=== PATIENT | female | born 1965 | race Caucasian/White ===

== ENCOUNTER 2018-05-29 18:39 | Inpatient (IN) | payer OTHER ==
[2018-05-29] MEDS ORDERED: ONDANSETRON 4 MG INJ IV (20:30)
[2018-05-29] MEDS ORDERED: hydrALAzine 20 MG INJ IV (20:30)
[2018-05-29] MEDS ORDERED: ACETAMINOPHEN 325 MG TAB PO (20:30)
[2018-05-29] MEDS ORDERED: ALBUTEROL/IPRATROPIUM (NEB) 3 ML AMP HHN (20:30)
[2018-05-29] MEDS: NYSTATIN SUSP 5 ML CUP PO (21:29)
[2018-05-29] MEDS: DOCUSATE SODIUM 100 MG CAP PO (22:28)
[2018-05-29] MEDS: MONTELUKAST 10 MG TAB PO (22:28)
[2018-05-29] MEDS: HYDROCODONE/APAP (5/325) TAB PO (22:29)
[2018-05-29] MEDS: ALBUTEROL 0.083% (NEB) 2.5 MG/3 ML AMP NEB (22:39)
[2018-05-29] MEDS: BUDESONIDE (NEB) 0.5MG/2ML AMP NEB (22:41)
[2018-05-30] MEDS: ALBUTEROL 0.083% (NEB) 2.5 MG/3 ML AMP NEB ×2 (03:41→07:43)
[2018-05-30] MEDS: NYSTATIN SUSP 5 ML CUP PO ×4 (08:09→20:56)
[2018-05-30] MEDS: predniSONE 20 MG TAB PO (08:09)
[2018-05-30] MEDS: AZITHROMYCIN 250 MG TAB PO (08:09)
[2018-05-30] MEDS: DOCUSATE SODIUM 100 MG CAP PO ×2 (08:09→21:00)
[2018-05-30] MEDS: HYDROCODONE/APAP (5/325) TAB PO ×3 (08:09→20:55)
[2018-05-30] MEDS: ENOXAPARIN 40 MG/0.4 ML SYG SC (09:04)
[2018-05-30] MEDS: BUDESONIDE (NEB) 0.5MG/2ML AMP NEB ×2 (09:46→21:09)
[2018-05-30] MEDS ORDERED: KETOROLAC 15 MG INJ IV (11:00)
[2018-05-30] MEDS ORDERED: GLUCOSE GEL 15 GRAM TUBE BUCCAL (11:30)
[2018-05-30] MEDS ORDERED: GLUCAGON 1 MG INJ IM (11:30)
[2018-05-30] MEDS ORDERED: GLUCOSE GEL 15 GRAM TUBE PO ×2 (11:30)
[2018-05-30] MEDS ORDERED: DEXTROSE 50% 50 ML SYRINGE IV ×2 (11:30)
[2018-05-30 11:38] LABS: Allen Test ACCEPTAB; Arterial Base Excess 6.7 mmol/L (-3.0-3); Arterial Blood Gas Oxygen Sat 89.4 mmHG (95.0-98.0); Arterial COHb 0.7 % (0.0-3.0); Arterial Fraction of Oxyhgb 88.5 % (93.0-99.0); Arterial HCO3 34.3 mmol/L (22.0-26.0); Arterial MetHb 0.3 % (0.0-1.5); Arterial pCO2 58.9 mmhg (35-45); MODE NASAL CANNULA; Site Right Radial
[2018-05-30] MEDS: INSULIN ASPART [NOVOLOG] 3 ML PEN SC ×3 (12:15→21:00)
[2018-05-30] MEDS: IPRATROPIUM (NEB) 0.5 MG/2.5 ML AMP HHN ×3 (13:13→21:09)
[2018-05-30] MEDS: ALBUTEROL 0.083% (NEB) 2.5 MG/3 ML AMP HHN ×3 (13:13→21:09)
[2018-05-30 13:34] LABS: ANION GAP 5 (5-13); BLOOD UREA NITROGEN 26 mg/dl (7-20); CALCIUM 8.9 mg/dl (8.4-10.2); CARBON DIOXIDE 35 mmol/L (21-31); CHLORIDE 98 mmol/L (97-110); Estimated GFR > 60 mL/min (>60); GLUCOSE 225 mg/dl (70-220); POTASSIUM 4.3 mmol/L (3.5-5.1); SODIUM 138 mmol/L (135-144)
[2018-05-30] MEDS: GUAIFENESIN/DM 5ML CUP PO (13:53)
[2018-05-30] MEDS: MONTELUKAST 10 MG TAB PO (20:56)
[2018-05-31] MEDS: IPRATROPIUM (NEB) 0.5 MG/2.5 ML AMP HHN ×6 (00:51→20:22)
[2018-05-31] MEDS: ALBUTEROL 0.083% (NEB) 2.5 MG/3 ML AMP HHN ×6 (00:51→20:22)
[2018-05-31] MEDS: ACCU-CHEK XX (02:00)
[2018-05-31 06:49] LABS: ADD MAN DIFF? NO
[2018-05-31 06:52] LABS: BASOPHILS % 0.2 % (0.0-2.0); EOSINOPHILS % 0.3 % (0.0-7.0); HEMATOCRIT 46.6 % (37.0-47.0); LYMPHOCYTES # 1.7 10^3/ul (0.8-2.9); LYMPHOCYTES % 16.5 % (15.0-51.0); MEAN CORPUSCULAR HEMOGLOBIN 31.1 pg (29.0-33.0); MEAN CORPUSCULAR HGB CONC 32.2 g/dl (32.0-37.0); MEAN CORPUSCULAR VOLUME 96.7 fl (82.0-101.0); MEAN PLATELET VOLUME 10.1 fl (7.4-10.4); MONOCYTE # 0.4 10^3/ul (0.3-0.9); MONOCYTES % 3.8 % (0.0-11.0); NEUTROPHILS % 77.8 % (39.0-77.0); PLATELET COUNT 178 10^3/UL (140-415); RED BLOOD COUNT 4.82 10^6/ul (4.20-5.40); RED CELL DISTRIBUTION WIDTH 13.7 % (11.5-14.5)
[2018-05-31 06:52] LABS: WHITE BLOOD COUNT 10.3 10^3/ul (4.8-10.8)
[2018-05-31] MEDS: HYDROCODONE/APAP (5/325) TAB PO ×4 (07:06→21:13)
[2018-05-31 07:26] LABS: ANION GAP 3 (5-13); BLOOD UREA NITROGEN 20 mg/dl (7-20); CALCIUM 8.5 mg/dl (8.4-10.2); CARBON DIOXIDE 37 mmol/L (21-31); CHLORIDE 101 mmol/L (97-110); Estimated GFR > 60 mL/min (>60); GLUCOSE 103 mg/dl (70-220); POTASSIUM 3.5 mmol/L (3.5-5.1); SODIUM 141 mmol/L (135-144)
[2018-05-31] MEDS: INSULIN ASPART [NOVOLOG] 3 ML PEN SC ×4 (07:41→21:15)
[2018-05-31] MEDS: DOCUSATE SODIUM 100 MG CAP PO ×2 (07:41→21:13)
[2018-05-31] MEDS: BUDESONIDE (NEB) 0.5MG/2ML AMP NEB ×2 (08:22→20:23)
[2018-05-31] MEDS: NYSTATIN SUSP 5 ML CUP PO ×4 (08:46→21:14)
[2018-05-31] MEDS: AZITHROMYCIN 250 MG TAB PO (08:46)
[2018-05-31] MEDS: CEFTRIAXONE 1 GM/50 ML (PMX) 50 ML IVPB (08:47)
[2018-05-31] MEDS: predniSONE 20 MG TAB PO (08:47)
[2018-05-31] MEDS: GUAIFENESIN/DM 5ML CUP PO (08:47)
[2018-05-31] MEDS: METHYLPREDNISOLONE 40 MG INJ IV ×2 (13:29→21:14)
[2018-05-31] MEDS: MONTELUKAST 10 MG TAB PO (21:13)
[2018-06-01] MEDS: ALBUTEROL 0.083% (NEB) 2.5 MG/3 ML AMP HHN ×6 (01:19→20:27)
[2018-06-01] MEDS: IPRATROPIUM (NEB) 0.5 MG/2.5 ML AMP HHN ×6 (01:19→20:27)
[2018-06-01] MEDS: ACCU-CHEK XX (02:00)
[2018-06-01] MEDS: METHYLPREDNISOLONE 40 MG INJ IV ×2 (05:43→20:52)
[2018-06-01] MEDS: HYDROCODONE/APAP (5/325) TAB PO ×4 (05:43→20:52)
[2018-06-01 08:02] LABS: AADO2 Arterial 96.4 mmHg (7.0-24.0); Allen Test ACCEPTAB; Arterial Base Excess 9.1 mmol/L (-3.0-3); Arterial Blood Gas Oxygen Sat 90.1 mmHG (95.0-98.0); Arterial COHb 0.7 % (0.0-3.0); Arterial Fraction of Oxyhgb 89.4 % (93.0-99.0); Arterial HCO3 35.3 mmol/L (22.0-26.0); Arterial MetHb 0.1 % (0.0-1.5); Arterial pCO2 53.1 mmhg (35-45); MODE NASAL CANNULA; Site Left Radial
[2018-06-01] MEDS: INSULIN ASPART [NOVOLOG] 3 ML PEN SC ×4 (08:18→20:52)
[2018-06-01] MEDS: NYSTATIN SUSP 5 ML CUP PO ×4 (08:31→20:51)
[2018-06-01] MEDS: AZITHROMYCIN 250 MG TAB PO (08:31)
[2018-06-01] MEDS: CEFTRIAXONE 1 GM/50 ML (PMX) 50 ML IVPB (08:31)
[2018-06-01] MEDS: DOCUSATE SODIUM 100 MG CAP PO ×2 (08:32→20:51)
[2018-06-01] MEDS: BUDESONIDE (NEB) 0.5MG/2ML AMP NEB ×2 (09:10→20:34)
[2018-06-01] MEDS: ACETAZOLAMIDE 500 MG INJ IV (10:41)
[2018-06-01] MEDS: GUAIFENESIN/DM 5ML CUP PO ×2 (13:21→20:51)
[2018-06-01 14:24] LABS: AADO2 Arterial 69.8 mmHg (7.0-24.0); Allen Test ACCEPTAB; Arterial Base Excess 4.2 mmol/L (-3.0-3); Arterial Blood Gas Oxygen Sat 90.7 mmHG (95.0-98.0); Arterial COHb 0.5 % (0.0-3.0); Arterial Fraction of Oxyhgb 90.1 % (93.0-99.0); Arterial HCO3 31.3 mmol/L (22.0-26.0); Arterial MetHb 0.2 % (0.0-1.5); Arterial pCO2 55.7 mmhg (35-45); MODE NASAL CANNULA; Site Left Radial
[2018-06-01] MEDS: MONTELUKAST 10 MG TAB PO (20:53)
[2018-06-02] MEDS: IPRATROPIUM (NEB) 0.5 MG/2.5 ML AMP HHN ×6 (01:05→21:07)
[2018-06-02] MEDS: ALBUTEROL 0.083% (NEB) 2.5 MG/3 ML AMP HHN ×6 (01:05→21:07)
[2018-06-02] MEDS: ACCU-CHEK XX (02:00)
[2018-06-02] MEDS: HYDROCODONE/APAP (5/325) TAB PO ×4 (04:54→20:28)
[2018-06-02 06:15] LABS: ABNORMAL IP MESSAGE 1; HEMATOCRIT 44.9 % (37.0-47.0); HEMOGLOBIN 14.4 g/dl (12.0-16.0); MEAN CORPUSCULAR HEMOGLOBIN 31.3 pg (29.0-33.0); MEAN CORPUSCULAR HGB CONC 32.1 g/dl (32.0-37.0); MEAN CORPUSCULAR VOLUME 97.6 fl (82.0-101.0); MEAN PLATELET VOLUME 9.8 fl (7.4-10.4); PLATELET COUNT 311 10^3/UL (140-415)
[2018-06-02 06:15] LABS: WHITE BLOOD COUNT 12.7 10^3/ul (4.8-10.8)
[2018-06-02 06:24] LABS: ADD MAN DIFF? YES; POSITIVE DIFF @See below
[2018-06-02 06:44] LABS: PHOSPHORUS 3.3 mg/dl (2.5-4.9)
[2018-06-02 06:44] LABS: MAGNESIUM 1.9 mg/dl (1.7-2.5)
[2018-06-02 06:57] LABS: ANION GAP 8 (5-13); BLOOD UREA NITROGEN 24 mg/dl (7-20); CALCIUM 9.2 mg/dl (8.4-10.2); CARBON DIOXIDE 30 mmol/L (21-31); CHLORIDE 101 mmol/L (97-110); Estimated GFR > 60 mL/min (>60); GLUCOSE 179 mg/dl (70-220); POTASSIUM 4.3 mmol/L (3.5-5.1); SODIUM 139 mmol/L (135-144)
[2018-06-02] MEDS ORDERED: PENDING SANTYL ORDER FOR WOUND CARE XX (07:00)
[2018-06-02 07:04] LABS: BAND NEUTROPHILS #M 0.3 10^3/ul (0.0-0.6); BAND NEUTROPHILS % (M) 3 % (0-4); ERYTHROBLAST% (NRBC) (M) 1 % (0-0); LYMPHOCYTES #M 0.6 10^3/ul (0.8-2.9); LYMPHOCYTES % (M) 5 % (15-51); METAMYELOCYTES #M 0.2 10^3/ul (0.0-0.0); METAMYELOCYTES %M 2 % (0-0); MONOCYTE #M 0.2 10^3/ul (0.3-0.9); MONOCYTES % (M) 2 % (0-11); MYELOCYTES #M 0.2 10^3/ul (0.0-0.0); MYELOCYTES % (M) 2 % (0-0); PLATELET ESTIMATE NORMAL; REACTIVE LYMPHOCYTES #M 0.1 10^3/ul (0.0-0.0); REACTIVE LYMPHOCYTES% (M) 1 % (0-0); SEG NEUT #M 10.8 10^3/ul (1.6-7.5); SEGMENTED NEUTROPHILS (M) % 85 % (39-77); SMUDGE%M 10 % (0-0)
[2018-06-02] MEDS: INSULIN ASPART [NOVOLOG] 3 ML PEN SC ×4 (08:18→21:00)
[2018-06-02] MEDS: NYSTATIN SUSP 5 ML CUP PO ×4 (08:38→20:27)
[2018-06-02] MEDS: DOCUSATE SODIUM 100 MG CAP PO ×2 (08:38→20:27)
[2018-06-02] MEDS: AZITHROMYCIN 250 MG TAB PO (08:38)
[2018-06-02] MEDS: BUDESONIDE (NEB) 0.5MG/2ML AMP NEB ×2 (09:11→21:08)
[2018-06-02] MEDS: CEFTRIAXONE 1 GM/50 ML (PMX) 50 ML IVPB (09:23)
[2018-06-02] MEDS: METHYLPREDNISOLONE 40 MG INJ IV (09:23)
[2018-06-02] MEDS: GUAIFENESIN/DM 5ML CUP PO (09:25)
[2018-06-02] MEDS: LOSARTAN 50 MG TAB PO (13:50)
[2018-06-02] MEDS: MONTELUKAST 10 MG TAB PO (20:27)
[2018-06-03] MEDS: ALBUTEROL 0.083% (NEB) 2.5 MG/3 ML AMP HHN ×5 (00:27→17:10)
[2018-06-03] MEDS: IPRATROPIUM (NEB) 0.5 MG/2.5 ML AMP HHN ×5 (00:27→17:10)
[2018-06-03] MEDS: HYDROCODONE/APAP (5/325) TAB PO ×4 (00:30→12:30)
[2018-06-03] MEDS: PROMETHAZINE/CODEINE 5ML CUP PO ×2 (01:41→05:00)
[2018-06-03] MEDS: ACCU-CHEK XX (02:00)
[2018-06-03] MEDS: INSULIN ASPART [NOVOLOG] 3 ML PEN SC ×3 (08:00→17:08)
[2018-06-03] MEDS: DOCUSATE SODIUM 100 MG CAP PO (09:03)
[2018-06-03] MEDS: CEFTRIAXONE 1 GM/50 ML (PMX) 50 ML IVPB (09:03)
[2018-06-03] MEDS: NYSTATIN SUSP 5 ML CUP PO ×3 (09:04→17:35)
[2018-06-03] MEDS: LOSARTAN 50 MG TAB PO (09:04)
[2018-06-03] MEDS: predniSONE 10 MG TAB PO (09:05)
[2018-06-03] MEDS: AZITHROMYCIN 250 MG TAB PO (09:05)
[2018-06-03] MEDS: BUDESONIDE (NEB) 0.5MG/2ML AMP NEB (09:15)
== END 2018-06-03 18:23 | disposition home or self-care (01) | DRG 189 ==
LOC: PP2 06-03 00:05 → TEL 18:39
PROC: 5A09557 Assistance with Respiratory Ventilation, Greater than 96 Consecutive Hours, Continuous Positive Airway Pressure (ICD-10-PCS; principal; 2018-05-29)
PROC: 4A1HXCZ Monitoring of Products of Conception, Cardiac Rate, External Approach (ICD-10-PCS; 2018-05-30)
DX: J96.22 Acute and chronic respiratory failure with hypercapnia (principal); E87.3 Alkalosis; J45.901 Unspecified asthma with (acute) exacerbation; Z68.41 Body mass index [BMI] 40.0-44.9, adult; N76.4 Abscess of vulva; J44.0 Chronic obstructive pulmonary disease with (acute) lower respiratory infection; J96.21 Acute and chronic respiratory failure with hypoxia; J20.9 Acute bronchitis, unspecified; R73.9 Hyperglycemia, unspecified; D75.1 Secondary polycythemia; G47.30 Sleep apnea, unspecified; E66.01 Morbid (severe) obesity due to excess calories; I10 Essential (primary) hypertension; L73.2 Hidradenitis suppurativa; D72.829 Elevated white blood cell count, unspecified; Z87.891 Personal history of nicotine dependence; T38.0X5A Adverse effect of glucocorticoids and synthetic analogues, initial encounter
CPT/HCPCS: 36600; 71045; 80048; 82803; 82962; 83735; 84100; 85025; 87070; 93306; 94640; 94660; 94664; 97161

== ENCOUNTER 2018-07-19 21:31 | Inpatient (IN) | payer OTHER ==
[2018-07-19] MEDS: ALBUTEROL/IPRATROPIUM (NEB) 3 ML AMP INH (23:50)
[2018-07-19] MEDS: morphine 2 MG INJ IV (23:53)
[2018-07-20] MEDS ORDERED: hydrOXYzine HCL 2 MG/ML 5ML CUP PO (00:30)
[2018-07-20] MEDS ORDERED: CALCIUM CARBONATE 1000 MG PO (00:30)
[2018-07-20] MEDS ORDERED: ACETAMINOPHEN 500 MG TAB PO (00:30)
[2018-07-20] MEDS ORDERED: CALCIUM CARBONATE 500 MG CHEW TAB PO (01:00)
[2018-07-20] MEDS: HYDROCODONE/APAP (5/325) TAB PO ×3 (01:22→16:22)
[2018-07-20] MEDS: SOD CHLORIDE 0.45% 1,000 ML IV (01:26)
[2018-07-20] MEDS: ALBUTEROL/IPRATROPIUM (NEB) 3 ML AMP INH ×5 (04:00→20:15)
[2018-07-20] MEDS: PANTOPRAZOLE (EC) 40 MG TAB PO (05:31)
[2018-07-20] MEDS: morphine 2 MG INJ IV ×3 (05:32→20:12)
[2018-07-20 07:13] LABS: ADD MAN DIFF? NO
[2018-07-20 07:24] LABS: BASOPHILS % 0.1 % (0.0-2.0); EOSINOPHILS % 0.2 % (0.0-7.0); HEMATOCRIT 46.8 % (37.0-47.0); HEMOGLOBIN 14.9 g/dl (12.0-16.0); LYMPHOCYTES # 2.2 10^3/ul (0.8-2.9); LYMPHOCYTES % 26.7 % (15.0-51.0); MEAN CORPUSCULAR HEMOGLOBIN 31.8 pg (29.0-33.0); MEAN CORPUSCULAR HGB CONC 31.8 g/dl (32.0-37.0); MEAN PLATELET VOLUME 9.8 fl (7.4-10.4); MONOCYTE # 0.8 10^3/ul (0.3-0.9); MONOCYTES % 9.8 % (0.0-11.0); NEUTROPHIL # 5.1 10^3/ul (1.6-7.5); NEUTROPHILS % 62.7 % (39.0-77.0); PLATELET COUNT 177 10^3/UL (140-415); RED BLOOD COUNT 4.68 10^6/ul (4.20-5.40); RED CELL DISTRIBUTION WIDTH 15.2 % (11.5-14.5)
[2018-07-20 07:24] LABS: WHITE BLOOD COUNT 8.1 10^3/ul (4.8-10.8)
[2018-07-20 07:42] LABS: ANION GAP 3 (5-13); BLOOD UREA NITROGEN 16 mg/dl (7-20); CARBON DIOXIDE 32 mmol/L (21-31); CHLORIDE 106 mmol/L (97-110); Estimated GFR > 60 mL/min (>60); GLUCOSE 71 mg/dl (70-220); POTASSIUM 3.8 mmol/L (3.5-5.1); SODIUM 141 mmol/L (135-144)
[2018-07-20] MEDS: traMADol 50 MG TAB PO ×3 (08:02→22:13)
[2018-07-20] MEDS: NYSTATIN SUSP 5 ML CUP PO ×5 (09:00→20:11)
[2018-07-20] MEDS ORDERED: SODIUM CHLORIDE 0.45% 500 ML BAG IV (09:00)
[2018-07-20] MEDS: BUDESONIDE (NEB) 0.5MG/2ML AMP INH ×2 (09:12→20:15)
[2018-07-20] MEDS: LISINOPRIL 20 MG TAB PO ×2 (09:46→20:11)
[2018-07-20] MEDS: BENZONATATE 100 MG CAP PO ×2 (09:46→20:22)
[2018-07-20] MEDS: predniSONE 20 MG TAB PO (09:46)
[2018-07-20] MEDS: DOCUSATE SODIUM 100 MG CAP PO ×2 (09:46→20:10)
[2018-07-20] MEDS: ENOXAPARIN 100 MG/ML SYG SC (09:54)
[2018-07-20 15:19] LABS: AADO2 Arterial 100.1 mmHg (7.0-24.0); Allen Test ACCEPTAB; Arterial Base Excess 6.4 mmol/L (-3.0-3); Arterial Blood Gas Oxygen Sat 93.7 mmHG (95.0-98.0); Arterial COHb 0.8 % (0.0-3.0); Arterial Fraction of Oxyhgb 92.8 % (93.0-99.0); Arterial HCO3 33.6 mmol/L (22.0-26.0); Arterial MetHb 0.2 % (0.0-1.5); Arterial pCO2 57.7 mmhg (35-45); MODE NASAL CANNULA; Site Right Radial
[2018-07-20] MEDS: MONTELUKAST 10 MG TAB PO (20:11)
[2018-07-20] MEDS: ONDANSETRON 4 MG TAB PO (20:22)
[2018-07-20] MEDS: GUAIFENESIN 20 MG/ML 5ML CUP PO (20:22)
[2018-07-21] MEDS: HYDROCODONE/APAP (5/325) TAB PO ×3 (00:20→20:26)
[2018-07-21] MEDS: ALBUTEROL/IPRATROPIUM (NEB) 3 ML AMP INH ×6 (00:51→20:35)
[2018-07-21] MEDS: SOD CHLORIDE 0.45% 1,000 ML IV (01:02)
[2018-07-21] MEDS: morphine 2 MG INJ IV ×4 (04:45→16:29)
[2018-07-21] MEDS: PANTOPRAZOLE (EC) 40 MG TAB PO (06:30)
[2018-07-21] MEDS: predniSONE 20 MG TAB PO (08:42)
[2018-07-21] MEDS: DOCUSATE SODIUM 100 MG CAP PO ×2 (08:42→20:25)
[2018-07-21] MEDS: LISINOPRIL 20 MG TAB PO ×2 (08:43→20:26)
[2018-07-21] MEDS: NYSTATIN SUSP 5 ML CUP PO ×4 (08:43→20:25)
[2018-07-21] MEDS: BUDESONIDE (NEB) 0.5MG/2ML AMP INH ×2 (10:19→20:35)
[2018-07-21] MEDS: ENOXAPARIN 100 MG/ML SYG SC (10:46)
[2018-07-21] MEDS: LORAZEPAM 2 MG INJ IV (14:00)
[2018-07-21] MEDS: FUROSEMIDE 20 MG INJ IV (17:29)
[2018-07-21] MEDS: ALPRAZOLAM 0.25 MG TAB PO (19:19)
[2018-07-21] MEDS: MONTELUKAST 10 MG TAB PO (20:25)
[2018-07-21] MEDS: GUAIFENESIN 20 MG/ML 5ML CUP PO (20:29)
[2018-07-22] MEDS: morphine 2 MG INJ IV ×4 (00:30→20:50)
[2018-07-22] MEDS: ALBUTEROL/IPRATROPIUM (NEB) 3 ML AMP INH ×6 (01:09→21:09)
[2018-07-22] MEDS: HYDROCODONE/APAP (5/325) TAB PO ×4 (03:22→23:05)
[2018-07-22] MEDS: PANTOPRAZOLE (EC) 40 MG TAB PO (05:35)
[2018-07-22 06:04] LABS: ADD MAN DIFF? NO
[2018-07-22 06:58] LABS: WHITE BLOOD COUNT 8.6 10^3/ul (4.8-10.8)
[2018-07-22 06:58] LABS: BASOPHILS % 0.1 % (0.0-2.0); EOSINOPHILS % 0.5 % (0.0-7.0); HEMATOCRIT 45.3 % (37.0-47.0); HEMOGLOBIN 14.5 g/dl (12.0-16.0); LYMPHOCYTES # 2.5 10^3/ul (0.8-2.9); LYMPHOCYTES % 28.8 % (15.0-51.0); MEAN CORPUSCULAR HEMOGLOBIN 32.4 pg (29.0-33.0); MEAN CORPUSCULAR VOLUME 101.1 fl (82.0-101.0); MEAN PLATELET VOLUME 10.3 fl (7.4-10.4); MONOCYTE # 0.7 10^3/ul (0.3-0.9); MONOCYTES % 7.6 % (0.0-11.0); NEUTROPHIL # 5.4 10^3/ul (1.6-7.5); NEUTROPHILS % 62.5 % (39.0-77.0); PLATELET COUNT 179 10^3/UL (140-415); RED BLOOD COUNT 4.48 10^6/ul (4.20-5.40); RED CELL DISTRIBUTION WIDTH 14.9 % (11.5-14.5)
[2018-07-22 07:02] LABS: ANION GAP 5 (5-13); BLOOD UREA NITROGEN 21 mg/dl (7-20); CALCIUM 9.2 mg/dl (8.4-10.2); CARBON DIOXIDE 29 mmol/L (21-31); CHLORIDE 106 mmol/L (97-110); CREATININE 0.45 mg/dl (0.44-1.00); Estimated GFR > 60 mL/min (>60); GLUCOSE 92 mg/dl (70-220); POTASSIUM 4.2 mmol/L (3.5-5.1); SODIUM 140 mmol/L (135-144)
[2018-07-22] MEDS: BUDESONIDE (NEB) 0.5MG/2ML AMP INH ×2 (08:21→21:09)
[2018-07-22 08:24] LABS: HEMOGLOBIN A1C 5.9 % (0-5.9)
[2018-07-22] MEDS: predniSONE 20 MG TAB PO (08:37)
[2018-07-22] MEDS: NYSTATIN SUSP 5 ML CUP PO ×4 (08:37→19:59)
[2018-07-22] MEDS: DOCUSATE SODIUM 100 MG CAP PO ×2 (08:37→19:59)
[2018-07-22] MEDS: LISINOPRIL 20 MG TAB PO ×2 (08:38→19:59)
[2018-07-22] MEDS: ENOXAPARIN 100 MG/ML SYG SC (09:09)
[2018-07-22] MEDS: morphine 4 MG/ML VIAL IV (15:08)
[2018-07-22] MEDS ORDERED: FUROSEMIDE 20 MG INJ IV (18:00)
[2018-07-22] MEDS: MONTELUKAST 10 MG TAB PO (19:58)
[2018-07-22] MEDS: CARISOPRODOL 350 MG TAB PO (19:58)
[2018-07-23] MEDS: ALBUTEROL/IPRATROPIUM (NEB) 3 ML AMP INH ×6 (00:11→20:46)
[2018-07-23] MEDS: GUAIFENESIN 20 MG/ML 5ML CUP PO (00:15)
[2018-07-23] MEDS: FUROSEMIDE 20 MG INJ IV (06:15)
[2018-07-23] MEDS: PANTOPRAZOLE (EC) 40 MG TAB PO (06:15)
[2018-07-23 06:38] LABS: ADD MAN DIFF? NO
[2018-07-23 06:47] LABS: WHITE BLOOD COUNT 8.8 10^3/ul (4.8-10.8)
[2018-07-23 06:47] LABS: BASOPHILS % 0.2 % (0.0-2.0); EOSINOPHILS # 0.1 10^3/ul (0.0-0.5); EOSINOPHILS % 0.7 % (0.0-7.0); HEMATOCRIT 46.5 % (37.0-47.0); LYMPHOCYTES # 2.3 10^3/ul (0.8-2.9); LYMPHOCYTES % 26.6 % (15.0-51.0); MEAN CORPUSCULAR HEMOGLOBIN 32.4 pg (29.0-33.0); MEAN CORPUSCULAR HGB CONC 32.3 g/dl (32.0-37.0); MEAN CORPUSCULAR VOLUME 100.4 fl (82.0-101.0); MEAN PLATELET VOLUME 10.2 fl (7.4-10.4); MONOCYTE # 0.8 10^3/ul (0.3-0.9); MONOCYTES % 9.1 % (0.0-11.0); NEUTROPHIL # 5.5 10^3/ul (1.6-7.5); NEUTROPHILS % 62.9 % (39.0-77.0); PLATELET COUNT 195 10^3/UL (140-415); RED BLOOD COUNT 4.63 10^6/ul (4.20-5.40); RED CELL DISTRIBUTION WIDTH 14.9 % (11.5-14.5)
[2018-07-23 07:25] LABS: ANION GAP 5 (5-13); BLOOD UREA NITROGEN 17 mg/dl (7-20); CALCIUM 9.3 mg/dl (8.4-10.2); CARBON DIOXIDE 34 mmol/L (21-31); CHLORIDE 104 mmol/L (97-110); CREATININE 0.47 mg/dl (0.44-1.00); Estimated GFR > 60 mL/min (>60); GLUCOSE 82 mg/dl (70-220); POTASSIUM 3.9 mmol/L (3.5-5.1); SODIUM 143 mmol/L (135-144)
[2018-07-23] MEDS: morphine 2 MG INJ IV ×3 (07:38→19:19)
[2018-07-23] MEDS: BUDESONIDE (NEB) 0.5MG/2ML AMP INH ×2 (08:03→20:47)
[2018-07-23] MEDS: LISINOPRIL 20 MG TAB PO ×2 (08:17→20:43)
[2018-07-23] MEDS: DOCUSATE SODIUM 100 MG CAP PO ×2 (08:18→20:42)
[2018-07-23] MEDS: predniSONE 20 MG TAB PO (08:18)
[2018-07-23] MEDS: NYSTATIN SUSP 5 ML CUP PO ×4 (08:18→21:28)
[2018-07-23] MEDS: ENOXAPARIN 100 MG/ML SYG SC (08:21)
[2018-07-23] MEDS: HYDROCODONE/APAP (5/325) TAB PO ×3 (09:45→21:27)
[2018-07-23] MEDS: CARISOPRODOL 350 MG TAB PO (12:05)
[2018-07-23] MEDS: hydrOXYzine HCL 25 MG TAB PO ×2 (13:42→21:27)
[2018-07-23] MEDS: MONTELUKAST 10 MG TAB PO (20:42)
[2018-07-24] MEDS: ALBUTEROL/IPRATROPIUM (NEB) 3 ML AMP INH ×6 (01:32→21:02)
[2018-07-24] MEDS: morphine 2 MG INJ IV ×4 (01:44→20:41)
[2018-07-24] MEDS: traMADol 50 MG TAB PO (03:16)
[2018-07-24] MEDS: GUAIFENESIN 20 MG/ML 5ML CUP PO ×2 (03:47→09:51)
[2018-07-24] MEDS: HYDROCODONE/APAP (5/325) TAB PO ×4 (03:47→22:06)
[2018-07-24] MEDS: PANTOPRAZOLE (EC) 40 MG TAB PO (06:50)
[2018-07-24] MEDS: FUROSEMIDE 20 MG INJ IV (06:51)
[2018-07-24] MEDS: hydrOXYzine HCL 25 MG TAB PO (07:13)
[2018-07-24] MEDS: DOCUSATE SODIUM 100 MG CAP PO ×2 (08:24→21:43)
[2018-07-24] MEDS: predniSONE 20 MG TAB PO (08:24)
[2018-07-24] MEDS: NYSTATIN SUSP 5 ML CUP PO ×4 (08:26→21:43)
[2018-07-24] MEDS: CARISOPRODOL 350 MG TAB PO ×2 (08:26→16:49)
[2018-07-24] MEDS: LISINOPRIL 20 MG TAB PO ×2 (08:26→21:00)
[2018-07-24] MEDS: ENOXAPARIN 100 MG/ML SYG SC (08:29)
[2018-07-24] MEDS: BUDESONIDE (NEB) 0.5MG/2ML AMP INH ×2 (09:28→20:55)
[2018-07-24] MEDS ORDERED: DIPHENHYDRAMINE 25 MG CAP PO (13:30)
[2018-07-24] MEDS ORDERED: ALPRAZOLAM 0.5 MG TAB PO ×2 (14:00)
[2018-07-24] MEDS: ALPRAZOLAM 1 MG TAB PO (15:48)
[2018-07-24] MEDS: CEPASTAT LOZENGE MT (17:51)
[2018-07-24] MEDS: ALBUTEROL 0.083% (NEB) 2.5 MG/3 ML AMP NEB (18:15)
[2018-07-24] MEDS: MONTELUKAST 10 MG TAB PO (21:43)
[2018-07-25] MEDS: ALBUTEROL/IPRATROPIUM (NEB) 3 ML AMP INH ×6 (00:04→20:51)
[2018-07-25] MEDS: morphine 2 MG INJ IV ×2 (02:49→08:39)
[2018-07-25] MEDS: HYDROCODONE/APAP (5/325) TAB PO ×3 (04:50→16:52)
[2018-07-25] MEDS: PANTOPRAZOLE (EC) 40 MG TAB PO (06:02)
[2018-07-25] MEDS: FUROSEMIDE 20 MG INJ IV (06:03)
[2018-07-25 06:17] LABS: ANION GAP 5 (5-13); BLOOD UREA NITROGEN 30 mg/dl (7-20); CALCIUM 9.1 mg/dl (8.4-10.2); CARBON DIOXIDE 32 mmol/L (21-31); CHLORIDE 105 mmol/L (97-110); CREATININE 0.55 mg/dl (0.44-1.00); Estimated GFR > 60 mL/min (>60); GLUCOSE 89 mg/dl (70-220); POTASSIUM 3.9 mmol/L (3.5-5.1); SODIUM 142 mmol/L (135-144)
[2018-07-25] MEDS: predniSONE 20 MG TAB PO (08:18)
[2018-07-25] MEDS: CARISOPRODOL 350 MG TAB PO ×2 (08:18→16:51)
[2018-07-25] MEDS: NYSTATIN SUSP 5 ML CUP PO ×4 (08:18→21:16)
[2018-07-25] MEDS: DOCUSATE SODIUM 100 MG CAP PO ×2 (08:18→21:16)
[2018-07-25] MEDS: LISINOPRIL 20 MG TAB PO ×2 (08:19→21:16)
[2018-07-25] MEDS: ENOXAPARIN 100 MG/ML SYG SC (08:31)
[2018-07-25] MEDS: BUDESONIDE (NEB) 0.5MG/2ML AMP INH ×2 (09:24→20:51)
[2018-07-25] MEDS: HYDROmorphONE 1 MG/ML SYG IV ×4 (11:16→23:07)
[2018-07-25] MEDS: GUAIFENESIN 20 MG/ML 5ML CUP PO (15:14)
[2018-07-25] MEDS: MONTELUKAST 10 MG TAB PO (21:16)
[2018-07-26] MEDS: ALBUTEROL/IPRATROPIUM (NEB) 3 ML AMP INH ×6 (00:49→20:44)
[2018-07-26] MEDS: HYDROCODONE/APAP (5/325) TAB PO ×5 (01:01→21:12)
[2018-07-26] MEDS: HYDROmorphONE 1 MG/ML SYG IV ×7 (03:05→23:20)
[2018-07-26] MEDS: PANTOPRAZOLE (EC) 40 MG TAB PO (06:00)
[2018-07-26] MEDS: FUROSEMIDE 20 MG INJ IV (06:01)
[2018-07-26] MEDS: BUDESONIDE (NEB) 0.5MG/2ML AMP INH ×2 (08:23→20:46)
[2018-07-26] MEDS: predniSONE 20 MG TAB PO (09:18)
[2018-07-26] MEDS: DOCUSATE SODIUM 100 MG CAP PO ×2 (09:18→21:12)
[2018-07-26] MEDS: NYSTATIN SUSP 5 ML CUP PO ×4 (09:18→21:12)
[2018-07-26] MEDS: LISINOPRIL 20 MG TAB PO ×2 (09:18→21:12)
[2018-07-26] MEDS: ENOXAPARIN 100 MG/ML SYG SC (09:20)
[2018-07-26] MEDS: CARISOPRODOL 350 MG TAB PO (16:17)
[2018-07-26] MEDS: MONTELUKAST 10 MG TAB PO (21:12)
[2018-07-27] MEDS: ALBUTEROL/IPRATROPIUM (NEB) 3 ML AMP INH ×6 (00:26→20:45)
[2018-07-27] MEDS: HYDROCODONE/APAP (5/325) TAB PO ×6 (01:30→22:05)
[2018-07-27] MEDS: HYDROmorphONE 1 MG/ML SYG IV ×5 (03:01→19:47)
[2018-07-27 05:15] LABS: ADD MAN DIFF? NO
[2018-07-27 05:18] LABS: BASOPHILS % 0.2 % (0.0-2.0); EOSINOPHILS % 0.4 % (0.0-7.0); HEMATOCRIT 44.9 % (37.0-47.0); HEMOGLOBIN 14.3 g/dl (12.0-16.0); LYMPHOCYTES # 2.3 10^3/ul (0.8-2.9); LYMPHOCYTES % 24.6 % (15.0-51.0); MEAN CORPUSCULAR HEMOGLOBIN 32.1 pg (29.0-33.0); MEAN CORPUSCULAR HGB CONC 31.8 g/dl (32.0-37.0); MEAN CORPUSCULAR VOLUME 100.7 fl (82.0-101.0); MEAN PLATELET VOLUME 9.5 fl (7.4-10.4); MONOCYTE # 1.1 10^3/ul (0.3-0.9); MONOCYTES % 11.4 % (0.0-11.0); NEUTROPHIL # 5.8 10^3/ul (1.6-7.5); NEUTROPHILS % 62.4 % (39.0-77.0); PLATELET COUNT 250 10^3/UL (140-415); RED BLOOD COUNT 4.46 10^6/ul (4.20-5.40); RED CELL DISTRIBUTION WIDTH 14.5 % (11.5-14.5)
[2018-07-27 05:18] LABS: WHITE BLOOD COUNT 9.3 10^3/ul (4.8-10.8)
[2018-07-27 05:37] LABS: PHOSPHORUS 3.7 mg/dl (2.5-4.9)
[2018-07-27 05:37] LABS: MAGNESIUM 1.9 mg/dl (1.7-2.5)
[2018-07-27] MEDS: PANTOPRAZOLE (EC) 40 MG TAB PO (05:43)
[2018-07-27 05:47] LABS: ANION GAP 4 (5-13); BLOOD UREA NITROGEN 19 mg/dl (7-20); CALCIUM 9.2 mg/dl (8.4-10.2); CARBON DIOXIDE 32 mmol/L (21-31); CHLORIDE 104 mmol/L (97-110); CREATININE 0.49 mg/dl (0.44-1.00); Estimated GFR > 60 mL/min (>60); GLUCOSE 109 mg/dl (70-220); SODIUM 140 mmol/L (135-144)
[2018-07-27] MEDS: FUROSEMIDE 20 MG INJ IV (05:48)
[2018-07-27] MEDS: LISINOPRIL 20 MG TAB PO ×2 (09:00→20:55)
[2018-07-27] MEDS: DOCUSATE SODIUM 100 MG CAP PO ×2 (09:20→20:54)
[2018-07-27] MEDS: ENOXAPARIN 100 MG/ML SYG SC (09:20)
[2018-07-27] MEDS: NYSTATIN SUSP 5 ML CUP PO ×4 (09:20→20:54)
[2018-07-27] MEDS: predniSONE 10 MG TAB PO (09:20)
[2018-07-27] MEDS: BUDESONIDE (NEB) 0.5MG/2ML AMP INH ×2 (14:37→20:45)
[2018-07-27] MEDS: CARISOPRODOL 350 MG TAB PO (16:46)
[2018-07-27] MEDS: MONTELUKAST 10 MG TAB PO (20:54)
[2018-07-28] MEDS: HYDROmorphONE 1 MG/ML SYG IV ×6 (00:07→20:52)
[2018-07-28] MEDS: ALBUTEROL/IPRATROPIUM (NEB) 3 ML AMP INH ×6 (01:31→20:00)
[2018-07-28] MEDS: HYDROCODONE/APAP (5/325) TAB PO ×6 (02:35→22:49)
[2018-07-28] MEDS: PANTOPRAZOLE (EC) 40 MG TAB PO (06:01)
[2018-07-28] MEDS: FUROSEMIDE 20 MG INJ IV (06:02)
[2018-07-28] MEDS: LISINOPRIL 20 MG TAB PO ×2 (09:00→20:55)
[2018-07-28] MEDS: CARISOPRODOL 350 MG TAB PO (09:36)
[2018-07-28] MEDS: NYSTATIN SUSP 5 ML CUP PO ×4 (09:36→20:48)
[2018-07-28] MEDS: DOCUSATE SODIUM 100 MG CAP PO ×2 (09:36→20:48)
[2018-07-28] MEDS: predniSONE 10 MG TAB PO (09:36)
[2018-07-28] MEDS: ENOXAPARIN 100 MG/ML SYG SC (09:38)
[2018-07-28] MEDS: BUDESONIDE (NEB) 0.5MG/2ML AMP INH ×2 (09:46→19:59)
[2018-07-28] MEDS: KETOROLAC 30 MG INJ IV (15:22)
[2018-07-28] MEDS: LIDOCAINE 5% PATCH TD (16:52)
[2018-07-28] MEDS: LUBIPROSTONE 8 MCG CAPSULE PO (20:48)
[2018-07-28] MEDS: MONTELUKAST 10 MG TAB PO (20:49)
[2018-07-29] MEDS: ALBUTEROL/IPRATROPIUM (NEB) 3 ML AMP INH ×6 (00:18→20:31)
[2018-07-29] MEDS: HYDROmorphONE 1 MG/ML SYG IV ×6 (00:53→21:06)
[2018-07-29] MEDS: HYDROCODONE/APAP (5/325) TAB PO ×6 (02:57→23:10)
[2018-07-29 04:56] LABS: ADD MAN DIFF? NO
[2018-07-29 05:01] LABS: BASOPHILS % 0.2 % (0.0-2.0); EOSINOPHILS % 0.4 % (0.0-7.0); HEMATOCRIT 44.5 % (37.0-47.0); HEMOGLOBIN 14.1 g/dl (12.0-16.0); LYMPHOCYTES # 2.4 10^3/ul (0.8-2.9); LYMPHOCYTES % 25.7 % (15.0-51.0); MEAN CORPUSCULAR HGB CONC 31.7 g/dl (32.0-37.0); MEAN CORPUSCULAR VOLUME 101.1 fl (82.0-101.0); MEAN PLATELET VOLUME 9.8 fl (7.4-10.4); MONOCYTE # 0.9 10^3/ul (0.3-0.9); MONOCYTES % 9.4 % (0.0-11.0); NEUTROPHILS % 63.5 % (39.0-77.0); PLATELET COUNT 261 10^3/UL (140-415); RED CELL DISTRIBUTION WIDTH 14.5 % (11.5-14.5)
[2018-07-29 05:01] LABS: WHITE BLOOD COUNT 9.5 10^3/ul (4.8-10.8)
[2018-07-29 05:18] LABS: ANION GAP 6 (5-13); BLOOD UREA NITROGEN 30 mg/dl (7-20); CALCIUM 9.2 mg/dl (8.4-10.2); CARBON DIOXIDE 35 mmol/L (21-31); CHLORIDE 99 mmol/L (97-110); CREATININE 0.55 mg/dl (0.44-1.00); Estimated GFR > 60 mL/min (>60); GLUCOSE 115 mg/dl (70-220); SODIUM 140 mmol/L (135-144)
[2018-07-29] MEDS: PANTOPRAZOLE (EC) 40 MG TAB PO (05:27)
[2018-07-29] MEDS: FUROSEMIDE 20 MG INJ IV (05:34)
[2018-07-29] MEDS: BUDESONIDE (NEB) 0.5MG/2ML AMP INH ×2 (09:07→20:31)
[2018-07-29] MEDS: NYSTATIN SUSP 5 ML CUP PO ×4 (09:31→20:52)
[2018-07-29] MEDS: DOCUSATE SODIUM 100 MG CAP PO ×2 (09:31→20:51)
[2018-07-29] MEDS: LUBIPROSTONE 8 MCG CAPSULE PO ×2 (09:31→20:52)
[2018-07-29] MEDS: LIDOCAINE 5% PATCH TD (09:32)
[2018-07-29] MEDS: predniSONE 10 MG TAB PO (09:32)
[2018-07-29] MEDS: LISINOPRIL 20 MG TAB PO ×2 (09:32→20:51)
[2018-07-29] MEDS: ENOXAPARIN 100 MG/ML SYG SC (09:34)
[2018-07-29] MEDS: CARISOPRODOL 350 MG TAB PO ×2 (11:00→23:51)
[2018-07-29] MEDS: KETOROLAC 30 MG INJ IM (12:15)
[2018-07-29] MEDS: MONTELUKAST 10 MG TAB PO (20:51)
[2018-07-30] MEDS: ALBUTEROL/IPRATROPIUM (NEB) 3 ML AMP INH ×6 (01:03→20:43)
[2018-07-30] MEDS: HYDROmorphONE 1 MG/ML SYG IV ×6 (01:10→22:19)
[2018-07-30] MEDS: HYDROCODONE/APAP (5/325) TAB PO ×5 (04:29→20:35)
[2018-07-30] MEDS: traMADol 50 MG TAB PO (04:42)
[2018-07-30 06:00] LABS: ADD MAN DIFF? NO
[2018-07-30] MEDS: FUROSEMIDE 20 MG INJ IV (06:00)
[2018-07-30 06:08] LABS: BASOPHILS % 0.1 % (0.0-2.0); EOSINOPHILS % 0.3 % (0.0-7.0); HEMATOCRIT 42.1 % (37.0-47.0); HEMOGLOBIN 13.3 g/dl (12.0-16.0); LYMPHOCYTES # 2.4 10^3/ul (0.8-2.9); LYMPHOCYTES % 25.5 % (15.0-51.0); MEAN CORPUSCULAR HEMOGLOBIN 32.1 pg (29.0-33.0); MEAN CORPUSCULAR HGB CONC 31.6 g/dl (32.0-37.0); MEAN CORPUSCULAR VOLUME 101.7 fl (82.0-101.0); MEAN PLATELET VOLUME 9.9 fl (7.4-10.4); MONOCYTE # 0.8 10^3/ul (0.3-0.9); MONOCYTES % 8.7 % (0.0-11.0); NEUTROPHIL # 6.1 10^3/ul (1.6-7.5); NEUTROPHILS % 64.8 % (39.0-77.0); PLATELET COUNT 256 10^3/UL (140-415); RED BLOOD COUNT 4.14 10^6/ul (4.20-5.40); RED CELL DISTRIBUTION WIDTH 14.4 % (11.5-14.5)
[2018-07-30 06:08] LABS: WHITE BLOOD COUNT 9.4 10^3/ul (4.8-10.8)
[2018-07-30] MEDS: PANTOPRAZOLE (EC) 40 MG TAB PO (06:27)
[2018-07-30 06:30] LABS: ANION GAP 6 (5-13); BLOOD UREA NITROGEN 28 mg/dl (7-20); CALCIUM 9.4 mg/dl (8.4-10.2); CARBON DIOXIDE 35 mmol/L (21-31); CHLORIDE 100 mmol/L (97-110); CREATININE 0.52 mg/dl (0.44-1.00); Estimated GFR > 60 mL/min (>60); GLUCOSE 97 mg/dl (70-220); POTASSIUM 3.8 mmol/L (3.5-5.1); SODIUM 141 mmol/L (135-144)
[2018-07-30] MEDS: NYSTATIN SUSP 5 ML CUP PO ×4 (08:34→20:35)
[2018-07-30] MEDS: DOCUSATE SODIUM 100 MG CAP PO ×2 (08:34→20:34)
[2018-07-30] MEDS: LISINOPRIL 20 MG TAB PO ×2 (08:35→20:36)
[2018-07-30] MEDS: predniSONE 10 MG TAB PO (08:35)
[2018-07-30] MEDS: LUBIPROSTONE 8 MCG CAPSULE PO ×2 (08:36→20:35)
[2018-07-30] MEDS: LIDOCAINE 5% PATCH TD (08:36)
[2018-07-30] MEDS: ENOXAPARIN 100 MG/ML SYG SC (08:39)
[2018-07-30] MEDS: BUDESONIDE (NEB) 0.5MG/2ML AMP INH ×2 (09:09→20:43)
[2018-07-30] MEDS: KETOROLAC 30 MG INJ IV (13:26)
[2018-07-30] MEDS: CARISOPRODOL 350 MG TAB PO (17:21)
[2018-07-30] MEDS: MONTELUKAST 10 MG TAB PO (20:35)
[2018-07-31] MEDS: HYDROCODONE/APAP (5/325) TAB PO ×5 (00:33→18:57)
[2018-07-31] MEDS: ALBUTEROL/IPRATROPIUM (NEB) 3 ML AMP INH ×6 (00:43→21:46)
[2018-07-31] MEDS: HYDROmorphONE 1 MG/ML SYG IV ×4 (02:33→14:29)
[2018-07-31] MEDS: CARISOPRODOL 350 MG TAB PO ×2 (03:05→11:29)
[2018-07-31] MEDS: PANTOPRAZOLE (EC) 40 MG TAB PO (06:25)
[2018-07-31] MEDS: FUROSEMIDE 20 MG INJ IV (06:28)
[2018-07-31] MEDS: DOCUSATE SODIUM 100 MG CAP PO ×2 (08:43→20:30)
[2018-07-31] MEDS: NYSTATIN SUSP 5 ML CUP PO ×4 (08:43→20:28)
[2018-07-31] MEDS: predniSONE 10 MG TAB PO (08:43)
[2018-07-31] MEDS: LUBIPROSTONE 8 MCG CAPSULE PO ×2 (08:44→20:31)
[2018-07-31] MEDS: LISINOPRIL 20 MG TAB PO ×2 (08:44→20:31)
[2018-07-31] MEDS: ENOXAPARIN 100 MG/ML SYG SC (08:51)
[2018-07-31] MEDS: BUDESONIDE (NEB) 0.5MG/2ML AMP INH ×2 (10:00→21:35)
[2018-07-31] MEDS ORDERED: HYDROmorphONE 1 MG/ML SYG IV (15:00)
[2018-07-31] MEDS: KETOROLAC 15 MG INJ IV ×2 (16:39→22:17)
[2018-07-31 17:10] LABS: ANION GAP 4 (5-13); BLOOD UREA NITROGEN 26 mg/dl (7-20); CALCIUM 9.5 mg/dl (8.4-10.2); CARBON DIOXIDE 36 mmol/L (21-31); CHLORIDE 100 mmol/L (97-110); CREATININE 0.64 mg/dl (0.44-1.00); Estimated GFR > 60 mL/min (>60); GLUCOSE 164 mg/dl (70-220); POTASSIUM 4.7 mmol/L (3.5-5.1); SODIUM 140 mmol/L (135-144)
[2018-07-31] MEDS: HYDROmorphONE 2 MG TAB PO (17:58)
[2018-07-31] MEDS: MONTELUKAST 10 MG TAB PO (20:30)
[2018-07-31] MEDS: GABAPENTIN 100 MG CAP PO (20:30)
[2018-07-31] MEDS: oxyCODONE (CR) 10 MG TAB [oxyCONTIN] PO (20:36)
[2018-07-31] MEDS: HYDROmorphONE 0.5 MG/0.5 ML SYG IV (21:28)
[2018-07-31] MEDS: CALCITONIN SALMON INJ 200 UNITS/ML SYG SC (23:30)
[2018-08-01] MEDS: HYDROmorphONE 0.5 MG/0.5 ML SYG IV ×3 (00:39→08:46)
[2018-08-01] MEDS: ALBUTEROL/IPRATROPIUM (NEB) 3 ML AMP INH ×5 (01:25→17:00)
[2018-08-01] MEDS: KETOROLAC 15 MG INJ IV ×3 (04:09→16:22)
[2018-08-01] MEDS: FUROSEMIDE 20 MG INJ IV (05:39)
[2018-08-01] MEDS: PANTOPRAZOLE (EC) 40 MG TAB PO (05:39)
[2018-08-01] MEDS: oxyCODONE (CR) 10 MG TAB [oxyCONTIN] PO ×2 (06:54→12:12)
[2018-08-01] MEDS: BUDESONIDE (NEB) 0.5MG/2ML AMP INH (08:24)
[2018-08-01] MEDS: CALCITONIN SALMON INJ 200 UNITS/ML SYG SC (08:46)
[2018-08-01] MEDS: LISINOPRIL 20 MG TAB PO (08:47)
[2018-08-01] MEDS: predniSONE 10 MG TAB PO (08:47)
[2018-08-01] MEDS: GABAPENTIN 100 MG CAP PO ×2 (08:47→12:12)
[2018-08-01] MEDS: LUBIPROSTONE 8 MCG CAPSULE PO (08:47)
[2018-08-01] MEDS: DOCUSATE SODIUM 100 MG CAP PO (08:47)
[2018-08-01] MEDS: NYSTATIN SUSP 5 ML CUP PO (08:47)
[2018-08-01] MEDS: ENOXAPARIN 100 MG/ML SYG SC (08:51)
[2018-08-01] MEDS: HYDROmorphONE 2 MG TAB PO ×2 (12:49→16:50)
== END 2018-08-01 17:06 | DRG 543 ==
LOC: MS1 07-23 13:26 → TEL 21:31
PROC: 4A033R1 Measurement of Arterial Saturation, Peripheral, Percutaneous Approach (ICD-10-PCS; principal; 2018-07-20)
DX: M48.54XA Collapsed vertebra, not elsewhere classified, thoracic region, initial encounter for fracture (principal); J44.1 Chronic obstructive pulmonary disease with (acute) exacerbation; Z68.41 Body mass index [BMI] 40.0-44.9, adult; J96.11 Chronic respiratory failure with hypoxia; M48.04 Spinal stenosis, thoracic region; E66.01 Morbid (severe) obesity due to excess calories; E78.5 Hyperlipidemia, unspecified; G47.33 Obstructive sleep apnea (adult) (pediatric); I11.0 Hypertensive heart disease with heart failure; I50.813 Acute on chronic right heart failure; E78.00 Pure hypercholesterolemia, unspecified; Z79.52 Long term (current) use of systemic steroids; Z87.891 Personal history of nicotine dependence; Z99.81 Dependence on supplemental oxygen
CPT/HCPCS: 36600; 71045; 71046; 72072; 72128; 78300; 80048; 82803; 83036; 83735; 84100; 85025; 94640; 94664; 97116; 97162; 97530

== ENCOUNTER 2018-08-01 23:04 | Emergency (ER) | payer OTHER ==
[2018-08-01] MEDS: HYDROmorphONE 2 MG/ML SYG IM (23:34)
[2018-08-02] MEDS: HYDROmorphONE 2 MG/ML SYG IM (01:55)
== END 2018-08-02 02:43 | disposition home or self-care (01) ==
LOC: E/R 08-02 02:43
DX: M54.9 Dorsalgia, unspecified (principal); J44.9 Chronic obstructive pulmonary disease, unspecified; I10 Essential (primary) hypertension; E66.01 Morbid (severe) obesity due to excess calories; Z68.31 Body mass index [BMI] 31.0-31.9, adult
CPT/HCPCS: 96372; 99284-25